=== PATIENT | male | born 1975 | race Caucasian/White ===

== ENCOUNTER 2017-11-27 13:01 | Inpatient (IN) | payer OTHER ==
[2017-11-27] MEDS ORDERED: LABETALOL HCL 100 MG TAB PO SCH (21:00)
[2017-11-27] MEDS ORDERED: D50W 25 GM/50 ML VIAL IVP PRN (21:01)
[2017-11-27] MEDS: PARoxetine HCL 20 MG TAB PO SCH (21:41)
[2017-11-27] MEDS: ATORVASTATIN CALCIUM 40 MG TAB PO SCH (21:41)
[2017-11-28] MEDS: INSULIN LISPRO 100 UNIT/ML SC SCH ×3 (08:04→17:08)
[2017-11-28] MEDS: NICOTINE 14 MG/24 HR PATCH TD SCH (08:05)
[2017-11-28 08:27] LABS: PLATELET COUNT 438 10^3/uL (150-400)
[2017-11-28] MEDS: PIOGLITAZONE HCL 15 MG TAB PO SCH (08:35)
[2017-11-28] MEDS: ASPIRIN EC 81 MG TAB PO SCH (08:35)
[2017-11-28] MEDS: CLOPIDOGREL BISULFATE 75 MG TAB PO SCH (08:35)
[2017-11-28] MEDS: INSULIN GLARGINE 100 UNITS/ML UNIT SC SCH ×2 (08:36→20:38)
[2017-11-28] MEDS: LABETALOL HCL 200 MG TAB PO SCH ×2 (09:35→20:32)
--- NOTE | 2017-11-28 11:04 | GHP ---
POST ADMISSION PHYSICIAN EVALUATION AND REHABILITATION TREATMENT PLAN DATE OF ADMISSION: 11/27/2017 DATE OF EVALUATION: 11/28/2017 TIME OF EVALUATION: 904 REFERRING FACILITY: [facility] REFERRING PHYSICIAN: Dr. Balderas IMPAIRMENT GROUP: 1.1. DATE OF ONSET: 11/23/2017 REHABLITATION DIAGNOSIS: Cerebrovascular accident ETIOLOGIC DIAGNOSIS: Left body involvement (right brain). HISTORY OF PRESENT ILLNESS: This patient is a 42-year-old man with history of diabetes mellitus and hypertension. He came to [facility] on 11/23, with left-sided weakness. He also had a hypertensive emergency with systolic blood pressure in the 260s. Blood pressure was controlled initially with IV labetalol. EKG showed sinus tachycardia. MRI of the brain showed small punctate acute lacunar infarcts in the right ventral thalamus, right posterior limb of the internal capsule, right parietal lobe white matter and right occipital lobe white matter. Head and neck CT angiogram showed a left vertebral artery dissection. Transthoracic echo was negative for intracardiac shunting. He had permissive hypertension for 24 hours, and he resumed his home dose of labetalol which was titrated with a goal blood pressure of less than 130/80. He was started on aspirin and clopidogrel for 1 month, and he will likely be transitioned to aspirin monotherapy after 1 month. LABORATORY DATA: Laboratory studies from his hospital stay: He had evaluation for hypercoagulable state, which was negative regarding anti-cardiolipin antibodies and a normal antithrombin III level. Basic metabolic profile on the day of admission showed an elevated glucose at 379, otherwise renal function and electrolytes were within normal limits. CBC showed a high hemoglobin and hematocrit at 19 and 56, and otherwise was within normal limits. Hemoglobin A1c was 14.1. Plasma homocystine was not elevated. Lipid panel showed a total cholesterol of 231, with an HDL of 38, and LDL of 148. Protein C was normal. Protein S was normal. PT and PTT were normal. Echocardiogram showed normal ventricular wall motion and size, and a normal ejection fraction of 54%. PRECAUTIONS: He is a fall risk, and he has aspiration precautions. ACTIVE COMORBIDITIES: He has the tier 3 comorbidities of hemiparesis, morbid obesity and diabetes with manifestations. PAST MEDICAL HISTORY: 1. Diabetes mellitus, type 2. 2. Hypertension. 3. Cholecystitis. 4. Tobacco dependence syndrome. 5. Bicuspid aortic valve. 6. Prolonged QT. 7. Prior CVA. 8. Diabetic retinopathy. 9. Dyslipidemia. 10. Major depression. 11. Obesity. 12. Diabetic nephropathy with elevated microalbumin. PAST SURGICAL HISTORY: He has had a laparoscopic cholecystectomy. PRE-HOSPITAL MEDICATIONS: 1. Amlodipine 10 mg p.o. daily. 2. Aspirin 81 mg p.o. daily. 3. Atorvastatin 40 mg p.o. at bedtime. 4. Humalog insulin. 5. Hydralazine 25 mg p.o. twice daily. 6. Labetalol 400 mg p.o. twice daily. 7. Metformin XR 1000 mg once a day. 8. Paroxetine 20 mg p.o. at bedtime. 9. Pioglitazone 30 mg p.o. daily. 10. Telmisartan/hydrochlorothiazide 80/25, 1 p.o. daily. 11. Tresiba FlexTouch 200 units/mL, up to 100 units daily. ADMISSION MEDICATIONS: 1. Aspirin 81 mg p.o. daily. 2. Atorvastatin 80 mg p.o. at bedtime. 3. Clopidogrel 75 mg p.o. daily. 4. Insulin, glargine, 36 units subcutaneous twice daily. 5. Insulin, lispro, on a sliding scale. 6. Labetalol 600 mg p.o. twice daily. 7. Metformin XR 1000 mg daily at 1800. 8. Nicotine patch. 9. Paroxetine 20 mg p.o. at bedtime. 10. Pioglitazone 30 mg p.o. daily. ALLERGIES: He has an intolerance listed to dulaglutide with nausea and vomiting. PSYCHOSOCIAL HISTORY: He was a smoker. He uses occasional alcohol. He lives alone. There are no steps to enter the home. He has no local family and no life partner. 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 FAMILY HISTORY: Noncontributory. REVIEW OF SYSTEMS: He is aware of difficulty forming words and of weakness and clumsiness on the left side. He denies vision changes. He denies loss of sensation. He denies numbness or tingling of the extremities. He expresses some frustration and distress around his debility from the stroke. He denies weight change, fevers, chills, cough, dyspnea, nausea, vomiting, constipation, diarrhea, dysuria or urinary frequency. He thinks he sleeps well. He is not aware of whether he snores. Otherwise, a 10-point review of systems is negative. PHYSICAL EXAM: VITAL SIGNS: Blood pressure is 144/86. At bedtime yesterday blood pressure was 178/114. Heart rate is 91. Respiratory rate is 17. Oxygen saturation is 90% on room air. Temperature is 36.6 degrees centigrade. His weight is 113.9 kg, for a body mass index of 37.1. GENERAL: This is an obese man, sitting in a chair, dressed in a green hospital smock, cooperative, and in no acute distress. HEENT: Extraocular movements are intact. Pupils are equal , round, and reactive to light. Mucous membranes are moist. Dentition is in good condition. He has a crowded airway, Mallampati class IV. NECK: Supple. HEART: There is a regular rate and rhythm with no murmurs, rubs, or gallops. LUNGS: Clear to auscultation bilaterally. ABDOMEN: Soft, nontender, nondistended with normoactive bowel sounds and no hepatosplenomegaly. EXTREMITIES: There is no cyanosis, clubbing or edema. Radial pulses are 2+ bilaterally. Pedal pulses are not palpable. NEUROLOGIC: He is alert and oriented x3. Cranial nerves 2-12 are grossly intact, though he has dysarthric speech. He has mild weakness on extension of the left arm, but otherwise strength is 5/5 overall. He has ataxia with the left arm and left leg. Sensation is intact to light touch. Deep tendon reflexes are 2+ bilaterally at the biceps and hypoactive at the patellae and Achilles tendons. CURRENT LEVEL OF FUNCTION: Per the pre-admission screen. Regarding diet, feeding, and swallowing, he passed a swallow screen. He was on a regular diet with supervision and setup. Grooming required supervision. It was done seated. He had difficulty with left upper extremity coordination and tool design engineer. Dressing, upper and lower body, required minimal assistance. Toileting required supervision and setup. Toilet transfer required minimal assist. He was continent of bowel and bladder. Bed mobility required supervision with voice cues with the head of the bed raised and very close supervision due to unsteadiness. Transfers required minimal assist with voice cues. He used a front-wheeled walker. Balance required minimal assist. Endurance was fair. He was able to walk 8 feet with a front-wheeled walker and minimal assist. Regarding communication, he was noted to have dysarthria. On today's exam, there is no significant difference from the pre-admission screen. IMPRESSION: This is a 42-year-old man with uncontrolled diabetes mellitus, type 2, and a hemoglobin A1c of 14.1 in the hospital, hypertension, dyslipidemia , and tobacco dependence syndrome who presented to [facility] on 11/23/2017, with left-sided weakness. He was diagnosed with multiple embolic strokes on the right side of his brain including frontal, parietal, thalamic, internal capsule and occipital lobes. His last time of normal neurologic function was unknown, so he was not treated with thrombolytics. He had an echocardiogram which ruled out intracardiac shunt. Head and neck CT angiogram showed a left vertebral dissection. He had been on aspirin previously and clopidogrel was added to be continued for 1 month. Blood pressure control was achieved with IV labetalol, and then he was switched to p.o. labetalol. Atorvastatin dose was increased. He was otherwise medically stable and appropriate for inpatient rehabilitation. His goal is to complete a rehabilitation stay and then return to independent living with home care versus outpatient services. For a safe discharge, he will need to achieve independence with eating, grooming and bed mobility, and modified independence for dressing, transfers, and ambulation on level and unlevel surfaces for community distances. His dysarthria will improve. He will likely require assistance for household management, shopping, and meal preparation. He will have therapy with PT, OT, and CLAIMS CUSTOMER SERVICE REPRESENTATIVE for 60 minutes per day for each discipline on 5-7 days of the week. His expected duration of stay is 10-14 days. It is anticipated that upon discharge he will continue to benefit from outpatient therapy including OT, CLAIMS CUSTOMER SERVICE REPRESENTATIVE, PT and a stroke support group. PLAN: 1. Left-sided weakness and ataxia due to multifocal right CVA. PT and OT to optimize mobility and ADLs toward the independent to modified-independent level. 2. Dysarthria to be assessed and treated per Speech and Language Pathology. 3. Diabetes mellitus, type 2. I have changed his insulin dosing to insulin glargine 30 units subcutaneous in the morning and 42 units subcutaneous at bedtime. My intention is to progressively decrease the morning dose and increase the evening dose, though he is on large enough doses that he will probably continue to benefit from twice-daily dosing by increasing the evening dose. Insulin can be more easily adjusted based on his fasting the next morning. Continue metformin, though he might benefit from titration. Continue pioglitazone, though I have reduced the dose from 30 mg to 15 mg daily due to interaction with clopidogrel. 4. Hypertension, currently managed on labetalol alone. As he is a diabetic he would benefit from resumption of an angiotensin receptor armando for renal protection. His blood pressure will be monitored and medications will be adjusted. 5. Dyslipidemia. Continue atorvastatin. Dose was increased in the hospital from 40 mg to 80 mg at bedtime. 6. Secondary prevention of CVA. Continue glycemic control, blood pressure control, atorvastatin for dyslipidemia, and aspirin and clopidogrel. After 1 month, the plan is to discontinue the clopidogrel. He will be referred to Cardiology upon discharge for placement of an implanted cardiac rhythm monitor to rule out occult atrial fibrillation. If he shows any signs or symptoms of dysrhythmias, we will get an EKG on the rehabilitation unit. 7. Tobacco dependence syndrome. He reports he has quit smoking now that he has had a stroke. He is receiving nicotine patch and this will be continued. 8. History of depression. Continue paroxetine. This will probably also suffice to enhance neuro-recovery, though fluoxetine is the SSRI about which there is data. 9. Obesity. He will have a registered safety engineer consult. He has been placed on a 2200 kilocalorie per day controlled-carbohydrate diet. 10. Vertebral dissection. Secondary prevention for cerebrovascular accident will also help prevent recurrence of vertebral dissection. FOLLOWUP: 1. He is to see neurologist, Dr. Reilly Robles, in approximately 3 weeks which will likely be after his discharge. 2. He will follow up with Cardiology for a 30-day cardiac loop recorder. 3. His primary care provider is Mikayla Zhu MD, whom he can see in approximately 2 weeks. /[id number]/MODL MTDD
[2017-11-28] MEDS ORDERED: LOPERAMIDE HCL 2 MG CAP PO PRN (14:41)
[2017-11-28] MEDS: metFORMIN SR 500 MG TAB PO SCH (17:08)
[2017-11-28] MEDS: PARoxetine HCL 20 MG TAB PO SCH (20:31)
[2017-11-28] MEDS: ATORVASTATIN CALCIUM 40 MG TAB PO SCH (20:31)
[2017-11-29] MEDS: LABETALOL HCL 200 MG TAB PO SCH ×2 (07:47→20:47)
[2017-11-29] MEDS: NICOTINE 14 MG/24 HR PATCH TD SCH (07:51)
[2017-11-29] MEDS: INSULIN GLARGINE 100 UNITS/ML UNIT SC SCH ×2 (07:53→20:49)
[2017-11-29] MEDS: INSULIN LISPRO 100 UNIT/ML SC SCH ×3 (07:55→17:26)
[2017-11-29] MEDS: CLOPIDOGREL BISULFATE 75 MG TAB PO SCH (08:21)
[2017-11-29] MEDS: PIOGLITAZONE HCL 15 MG TAB PO SCH (08:21)
[2017-11-29] MEDS: ASPIRIN EC 81 MG TAB PO SCH (08:21)
--- NOTE | 2017-11-29 11:31 | SOAPPROG ---
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 PT and OT to optimize mobility and ADLs toward the independent to modified-independent level. Dysarthria to be assessed and treated per Speech and Language Pathology. Diabetes mellitus, type 2. I have changed his insulin dosing to insulin glargine 30 units subcutaneous in the morning and 42 units subcutaneous at bedtime starting 11/27/2017. Insulin can be more easily adjusted based on his fasting the next morning. Continue metformin; he reports intolerance to higher dose in the past.. Continue pioglitazone, with dose reduced from 30 mg to 15 mg daily due to interaction with clopidogrel. Hypertension, and orthostatic hypotension * Reduce labetalol dose from 600 mg twice daily to 300 mg twice daily, 11/29/2017 , and initiate candesartan 8 mg at HS to control nocturnal hypertension. ARB is indicated in diabetic, and duration of candesartan is the shortest of the available ARB ease so should contribute the least 2 daytime orthostasis. * Continue to monitor blood pressure and orthostatic changes. Dyslipidemia. Continue atorvastatin. Dose was increased in the hospital from 40 mg to 80 mg at bedtime. Secondary prevention of CVA. Continue glycemic control, blood pressure control , atorvastatin for dyslipidemia, and aspirin and clopidogrel. After 1 month, the plan is to discontinue the clopidogrel. He will be referred to Cardiology upon discharge for placement of an implanted cardiac rhythm monitor to rule out occult atrial fibrillation. If he shows any signs or symptoms of dysrhythmias, we will get an EKG on the rehabilitation unit. Tobacco dependence syndrome. He reports he has quit smoking now that he has had a stroke. He is receiving nicotine patch and this will be continued. History of depression. Continue paroxetine. This will probably also suffice to enhance neuro-recovery, though fluoxetine is the SSRI about which there is data. Obesity. He will have a telephone sex worker consult. He has been placed on a 2200 kilocalorie per day controlled-carbohydrate diet. Vertebral dissection. Secondary prevention for cerebrovascular accident will also help prevent recurrence of vertebral dissection. FOLLOWUP: 1. He is to see neurologist, Dr. Reilly Robles, in approximately 3 weeks which will likely be after his discharge. 2. He will follow up with Cardiology for a 30-day cardiac loop recorder. 3. His primary care provider is Mikayla Zhu MD, whom he can see in approximately 2 weeks. 11/29/17 13:14 Subjective: No complaints. Slept well. Not in pain. Has had dizziness with standing. Found to be orthostatic. Objective: Vital Signs Temp Pulse Resp BP Pulse Ox 36.8 C 86 19 75/48 L 93 11/29/17 07:43 11/29/17 08:55 11/29/17 07:43 11/29/17 08:55 11/29/17 07:43 Laboratory Results 11/28/17 06:03 11/28/17 06:03 11/28/17 11/29/17 11/30/17 05:59 05:59 05:59 Intake Total 0 2535 257 Output Total 500 600 Balance 0 2035 -343 Physical Exam - Physical Exam General Appearance: WD/WN, alert, no apparent distress Respiratory: normal breath sounds, No crackles, No rhonchi, No wheezing Cardiac/Chest: regular rate, rhythm, edema (1+ bilateral pretibial), No diastolic murmur, No systolic murmur Skin: normal color, warm/dry Neuro/Psych: alert, normal mood/affect, oriented x 3 ICD10 Worksheet Patient Problems: Problems Problem Status Onset CVA (cerebral vascular accident) Acute HTN (hypertension) Acute Vertebral artery dissection Acute
[2017-11-29] MEDS: metFORMIN SR 500 MG TAB PO SCH (17:26)
[2017-11-29] MEDS: ATORVASTATIN CALCIUM 40 MG TAB PO SCH (20:46)
[2017-11-29] MEDS: PARoxetine HCL 20 MG TAB PO SCH (20:47)
[2017-11-29] MEDS: CANDESARTAN CILEXETIL 8 MG TAB PO SCH (20:49)
[2017-11-30] MEDS: INSULIN LISPRO 100 UNIT/ML SC SCH ×3 (09:43→17:14)
[2017-11-30] MEDS: NICOTINE 14 MG/24 HR PATCH TD SCH (09:58)
[2017-11-30] MEDS: LABETALOL HCL 200 MG TAB PO SCH ×2 (09:59→21:18)
[2017-11-30] MEDS: CLOPIDOGREL BISULFATE 75 MG TAB PO SCH (09:59)
[2017-11-30] MEDS: INSULIN GLARGINE 100 UNITS/ML UNIT SC SCH ×2 (09:59→21:17)
[2017-11-30] MEDS: ASPIRIN EC 81 MG TAB PO SCH (09:59)
[2017-11-30] MEDS: PIOGLITAZONE HCL 15 MG TAB PO SCH (10:00)
--- NOTE | 2017-11-30 10:00 | SOAPPROG ---
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 * SBA bed mobility. Walked 50' FWW cues to avoid L foot drag. Needed assist for ADLs due to orthostatic hypotension. * Continue PT and OT to optimize mobility and ADLs toward the independent to modified-independent level. Dysarthria, per Speech and Language Pathology. Diabetes mellitus, type 2. Glargine insulin dosing changed from 36 units BID to 30 units subcutaneous in the morning and 42 units subcutaneous at bedtime starting 11/27/2017. Insulin can be more easily adjusted based on his fasting the next morning. Continue metformin; he reports intolerance to higher dose in the past.. Continue pioglitazone, with dose reduced from 30 mg to 15 mg daily due to interaction with clopidogrel. * Fasting range is 139-177 over past 3 days. Will increase HS glargine from 40 to units to 45 units starting 11/30/2017. Hypertension, and orthostatic hypotension * Reduce labetalol dose from 600 mg twice daily to 300 mg twice daily, 11/29/2017 , and initiated candesartan 8 mg at HS 11/29/2017 to control nocturnal hypertension. ARB is indicated in diabetic, and duration of candesartan is the shortest of the available ARB ease so should contribute the least 2 daytime orthostasis. * Symptomatically improved, 11/30/2017. * Continue to monitor blood pressure and orthostatic changes. Dyslipidemia. Continue atorvastatin. Dose was increased in the hospital from 40 mg to 80 mg at bedtime. Secondary prevention of CVA. Continue glycemic control, blood pressure control , atorvastatin for dyslipidemia, and aspirin and clopidogrel. After 1 month, ( 12/22/2017) the plan is to discontinue the clopidogrel. He will be referred to Cardiology upon discharge for placement of an implanted cardiac rhythm monitor to rule out occult atrial fibrillation. If he shows any signs or symptoms of dysrhythmias, we will get an EKG on the rehabilitation unit. Tobacco dependence syndrome. He reports he has quit smoking now that he has had a stroke. He is receiving nicotine patch and this will be continued. History of depression. Continue paroxetine. This will probably also suffice to enhance neuro-recovery, though fluoxetine is the SSRI about which there is data. Obesity. He will have a signing teacher consult. He has been placed on a 2200 kilocalorie per day controlled-carbohydrate diet. Vertebral dissection. Secondary prevention for cerebrovascular accident will also help prevent recurrence of vertebral dissection. FOLLOWUP: 1. He is to see neurologist, Dr. Reilly Robles, in approximately 3 weeks (12/18/2017) which will likely be after his discharge. 2. He will follow up with Cardiology for a 30-day cardiac loop recorder. 3. His primary care provider is Mikayla Zhu MD, whom he can see in approximately 2 weeks (12/11/2017). 11/30/17 11:35 Subjective: No complaints. No orthostatic symptoms this morning. Slept well. No cough or dyspnea, no fevers or chills, not in pain. Objective: Vital Signs Temp Pulse Resp BP Pulse Ox 37.0 C 71 16 145/93 H 93 11/29/17 20:00 11/29/17 20:47 11/29/17 20:00 11/30/17 00:08 11/29/17 20:00 Laboratory Results 11/28/17 06:03 11/28/17 06:03 11/29/17 11/30/17 12/01/17 05:59 05:59 05:59 Intake Total 2535 1447 120 Output Total 500 1300 950 Balance 2035 147 -830 Physical Exam - Physical Exam General Appearance: WD/WN, alert, no apparent distress Respiratory: normal breath sounds, No crackles, No rhonchi, No wheezing Cardiac/Chest: regular rate, rhythm, No diastolic murmur, No systolic murmur Skin: normal color, warm/dry Neuro/Psych: alert, normal mood/affect, oriented x 3, other (Observed working with physical therapy practicing raising feet on 2 step. Has ataxia with the left leg.) ICD10 Worksheet Patient Problems: Problems Problem Status Onset CVA (cerebral vascular accident) Acute HTN (hypertension) Acute Vertebral artery dissection Acute
[2017-11-30] MEDS ORDERED: PNEUMOCOCCAL 0.5ML VACCINE VIAL IM ONE (12:09)
[2017-11-30] MEDS: metFORMIN SR 500 MG TAB PO SCH (17:15)
[2017-11-30] MEDS: CANDESARTAN CILEXETIL 8 MG TAB PO SCH (21:18)
[2017-11-30] MEDS: PARoxetine HCL 20 MG TAB PO SCH (21:18)
[2017-11-30] MEDS: ATORVASTATIN CALCIUM 40 MG TAB PO SCH (21:18)
[2017-12-01] MEDS: INSULIN GLARGINE 100 UNITS/ML UNIT SC SCH ×2 (08:14→21:13)
[2017-12-01] MEDS: LABETALOL HCL 200 MG TAB PO SCH ×2 (08:15→21:16)
[2017-12-01] MEDS: CLOPIDOGREL BISULFATE 75 MG TAB PO SCH (08:19)
[2017-12-01] MEDS: PIOGLITAZONE HCL 15 MG TAB PO SCH (08:19)
[2017-12-01] MEDS: ASPIRIN EC 81 MG TAB PO SCH (08:19)
[2017-12-01] MEDS: INSULIN LISPRO 100 UNIT/ML SC SCH ×3 (08:19→17:20)
[2017-12-01] MEDS: NICOTINE 14 MG/24 HR PATCH TD SCH (08:20)
--- NOTE | 2017-12-01 15:16 | SOAPPROG ---
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 * SBA bed mobility. Walked 50' FWW cues to avoid L foot drag. Needed assist for ADLs due to orthostatic hypotension. * Continue PT and OT to optimize mobility and ADLs toward the independent to modified-independent level. Dysarthria, per Speech and Language Pathology. Diabetes mellitus, type 2. Glargine insulin dosing changed from 36 units BID to 30 units subcutaneous in the morning and 42 units subcutaneous at bedtime starting 11/27/2017. Insulin can be more easily adjusted based on his fasting the next morning. Continue metformin; he reports intolerance to higher dose in the past.. Continue pioglitazone, with dose reduced from 30 mg to 15 mg daily due to interaction with clopidogrel. * Glucose with significant improvement over last 24hrs. Cont lantus 30/45 as started on 11/30/2017. Hypertension, and orthostatic hypotension * Reduce labetalol dose from 600 mg twice daily to 300 mg twice daily, 11/29/2017 , and initiated candesartan 8 mg at HS 11/29/2017 to control nocturnal hypertension. ARB is indicated in diabetic, and duration of candesartan is the shortest of the available ARB ease so should contribute the least 2 daytime orthostasis. * Symptomatically improved, 11/30/2017. * Continue to monitor blood pressure and orthostatic changes. Dyslipidemia. Continue atorvastatin. Dose was increased in the hospital from 40 mg to 80 mg at bedtime. Secondary prevention of CVA. Continue glycemic control, blood pressure control , atorvastatin for dyslipidemia, and aspirin and clopidogrel. After 1 month, ( 12/22/2017) the plan is to discontinue the clopidogrel. He will be referred to Cardiology upon discharge for placement of an implanted cardiac rhythm monitor to rule out occult atrial fibrillation. If he shows any signs or symptoms of dysrhythmias, we will get an EKG on the rehabilitation unit. Tobacco dependence syndrome. He reports he has quit smoking now that he has had a stroke. He is receiving nicotine patch and this will be continued. History of depression. Continue paroxetine. This will probably also suffice to enhance neuro-recovery, though fluoxetine is the SSRI about which there is data. Obesity. He will have a pinmaker consult. He has been placed on a 2200 kilocalorie per day controlled-carbohydrate diet. Vertebral dissection. Secondary prevention for cerebrovascular accident will also help prevent recurrence of vertebral dissection. FOLLOWUP: 1. He is to see neurologist, Dr. Reilly Robles, in approximately 3 weeks (12/18/2017) which will likely be after his discharge. 2. He will follow up with Cardiology for a 30-day cardiac loop recorder. 3. His primary care provider is Mikayla Zhu MD, whom he can see in approximately 2 weeks (12/11/2017). 12/01/17 15:14 Subjective: Doing pretty well today. Slept well. Has control over bowel/bladder. no new pain Objective: Vital Signs Temp Pulse Resp BP Pulse Ox 98.1 F 75 18 128/86 H 96 12/01/17 07:37 12/01/17 08:00 12/01/17 07:37 12/01/17 08:00 12/01/17 07:37 Laboratory Results 11/28/17 06:03 11/28/17 06:03 11/30/17 12/01/17 12/02/17 05:59 05:59 05:59 Intake Total 1447 980 480 Output Total 1300 2100 500 Balance 147 -1120 -20 Physical Exam - Physical Exam General Appearance: no apparent distress Respiratory: lungs clear Cardiac/Chest: regular rate, rhythm Skin: warm/dry Neuro/Psych: alert, normal mood/affect ICD10 Worksheet Patient Problems: Problems Problem Status Onset CVA (cerebral vascular accident) Acute HTN (hypertension) Acute Vertebral artery dissection Acute
[2017-12-01] MEDS: metFORMIN SR 500 MG TAB PO SCH (17:31)
[2017-12-01] MEDS: PARoxetine HCL 20 MG TAB PO SCH (21:15)
[2017-12-01] MEDS: CANDESARTAN CILEXETIL 8 MG TAB PO SCH (21:15)
[2017-12-01] MEDS: ATORVASTATIN CALCIUM 40 MG TAB PO SCH (21:15)
[2017-12-02] MEDS: INSULIN LISPRO 100 UNIT/ML SC SCH ×3 (07:40→17:24)
[2017-12-02] MEDS: NICOTINE 14 MG/24 HR PATCH TD SCH (07:56)
[2017-12-02] MEDS: LABETALOL HCL 200 MG TAB PO SCH ×2 (07:58→20:14)
[2017-12-02] MEDS: CLOPIDOGREL BISULFATE 75 MG TAB PO SCH (08:00)
[2017-12-02] MEDS: ASPIRIN EC 81 MG TAB PO SCH (08:00)
[2017-12-02] MEDS: INSULIN GLARGINE 100 UNITS/ML UNIT SC SCH ×2 (08:01→21:21)
[2017-12-02] MEDS: PIOGLITAZONE HCL 15 MG TAB PO SCH (08:01)
--- NOTE | 2017-12-02 12:41 | SOAPPROG ---
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 * SBA bed mobility. Walked 50' FWW cues to avoid L foot drag. Needed assist for ADLs due to orthostatic hypotension. * Continue PT and OT to optimize mobility and ADLs toward the independent to modified-independent level. Dysarthria, per Speech and Language Pathology. Diabetes mellitus, type 2. Glargine insulin dosing changed from 36 units BID to 30 units subcutaneous in the morning and 42 units subcutaneous at bedtime starting 11/27/2017. Insulin can be more easily adjusted based on his fasting the next morning. Continue metformin; he reports intolerance to higher dose in the past.. Continue pioglitazone, with dose reduced from 30 mg to 15 mg daily due to interaction with clopidogrel. * Glucose with significant improvement over last 24hrs. Cont lantus 30/45 as started on 11/30/2017. Hypertension, and orthostatic hypotension * Reduce labetalol dose from 600 mg twice daily to 300 mg twice daily, 11/29/2017 , and initiated candesartan 8 mg at HS 11/29/2017 to control nocturnal hypertension. ARB is indicated in diabetic, and duration of candesartan is the shortest of the available ARB ease so should contribute the least 2 daytime orthostasis. * Symptomatically improved, 11/30/2017. * Continue to monitor blood pressure and orthostatic changes. Dyslipidemia. Continue atorvastatin. Dose was increased in the hospital from 40 mg to 80 mg at bedtime. Secondary prevention of CVA. Continue glycemic control, blood pressure control , atorvastatin for dyslipidemia, and aspirin and clopidogrel. After 1 month, ( 12/22/2017) the plan is to discontinue the clopidogrel. He will be referred to Cardiology upon discharge for placement of an implanted cardiac rhythm monitor to rule out occult atrial fibrillation. If he shows any signs or symptoms of dysrhythmias, we will get an EKG on the rehabilitation unit. Tobacco dependence syndrome. He reports he has quit smoking now that he has had a stroke. He is receiving nicotine patch and this will be continued. History of depression. Continue paroxetine. This will probably also suffice to enhance neuro-recovery, though fluoxetine is the SSRI about which there is data. Obesity. He will have a automobile leasing supervisor consult. He has been placed on a 2200 kilocalorie per day controlled-carbohydrate diet. Vertebral dissection. Secondary prevention for cerebrovascular accident will also help prevent recurrence of vertebral dissection. FOLLOWUP: 1. He is to see neurologist, Dr. Reilly Robles, in approximately 3 weeks (12/18/2017) which will likely be after his discharge. 2. He will follow up with Cardiology for a 30-day cardiac loop recorder. 3. His primary care provider is Mikayla Zhu MD, whom he can see in approximately 2 weeks (12/11/2017). Today's Plan: Pt with some evidence of orthostasis while standing today. Still with somewhat labile blood pressure - up to 140's or 150 when in bed. We discussed utilizing strategies to decreased the orthostasis (worse when goes quickly in sitting/standing) to see if this will allow appropriate acclimation. no new neurologic deficits or other concerns. Glucose relatively well controlled- Slightly low at 69 this am but quickly corrected and patient without symptoms. 12/02/17 12:38 Subjective: Feeling good today - Did notice being somewhat light headed with standing but otherwise no symptoms. No new SOB/CP or other neurologic changes. Feels like his glucose is getting better controlled than ever before. Objective: Vital Signs Temp Pulse Resp BP Pulse Ox 98.3 F 84 19 101/73 95 12/02/17 07:20 12/02/17 07:58 12/02/17 07:20 12/02/17 07:58 12/02/17 07:20 Laboratory Results 11/28/17 06:03 11/28/17 06:03 12/01/17 12/02/17 12/03/17 05:59 05:59 05:59 Intake Total 980 1020 640 Output Total 2100 900 350 Balance -1120 120 290 Physical Exam - Physical Exam General Appearance: no apparent distress, other (sitting up in his chair at the side of the bed) Respiratory: lungs clear, normal breath sounds Cardiac/Chest: regular rate, rhythm Abdomen: non-tender, soft Skin: normal color Extremities: non-tender Neuro/Psych: alert, normal mood/affect ICD10 Worksheet Patient Problems: Problems Problem Status Onset CVA (cerebral vascular accident) Acute HTN (hypertension) Acute Vertebral artery dissection Acute
[2017-12-02] MEDS: ENOXAPARIN 30 MG/0.3 ML SYR SC SCH (14:33)
[2017-12-02] MEDS: metFORMIN SR 500 MG TAB PO SCH (17:26)
[2017-12-02] MEDS: PARoxetine HCL 20 MG TAB PO SCH (20:13)
[2017-12-02] MEDS: ATORVASTATIN CALCIUM 40 MG TAB PO SCH (20:14)
[2017-12-02] MEDS: CANDESARTAN CILEXETIL 8 MG TAB PO SCH (20:14)
[2017-12-03] MEDS: ASPIRIN EC 81 MG TAB PO SCH (08:41)
[2017-12-03] MEDS: PIOGLITAZONE HCL 15 MG TAB PO SCH (08:41)
[2017-12-03] MEDS: NICOTINE 14 MG/24 HR PATCH TD SCH (08:41)
[2017-12-03] MEDS: CLOPIDOGREL BISULFATE 75 MG TAB PO SCH (08:41)
[2017-12-03] MEDS: INSULIN LISPRO 100 UNIT/ML SC SCH ×3 (08:47→17:16)
[2017-12-03] MEDS: INSULIN GLARGINE 100 UNITS/ML UNIT SC SCH ×2 (08:48→20:23)
[2017-12-03] MEDS: ENOXAPARIN 30 MG/0.3 ML SYR SC SCH (08:52)
[2017-12-03] MEDS: LABETALOL HCL 200 MG TAB PO SCH ×2 (10:00→20:19)
[2017-12-03] MEDS ORDERED: LABETALOL HCL 100 MG TAB PO ONE (10:00)
--- NOTE | 2017-12-03 13:32 | SOAPPROG ---
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 * Initial functional independence measure is 84 on 12/03/2017. Standby assist/ supervision for bed mobility. Transfers with standby assist and front wheeled walker. Ambulated 100 ft standby assist with front wheeled walker. Has left lower extremity weakness and inconsistent foot placement. Grooming and hygiene are done seated. Upper body dressing requires setup and standby assist. Lower body dressing requires contact guard assist for balance. Bathing is done with contact guard assist. He has reduced visual acuity, 20/50 on the right, and 20/ 40 on the left. * Continue PT and OT to optimize mobility and ADLs toward the independent to modified-independent level. Dysarthria, mild to moderate. Continue Speech and Language Pathology. Diabetes mellitus, type 2. Glargine insulin dosing changed from 36 units BID to 30 units subcutaneous in the morning and 42 units subcutaneous at bedtime starting 11/27/2017. Insulin can be more easily adjusted based on his fasting the next morning. Continue metformin; he reports intolerance to higher dose in the past.. Continue pioglitazone, with dose reduced from 30 mg to 15 mg daily due to interaction with clopidogrel. * Fasting range is 139-177 over past 3 days as of 11/30/2017. Will increase HS glargine from 40 to units to 45 units starting 11/30/2017. * Fasting running low last several days as of 12/03/2017. Reduce a.m. Glargine from 30 to 28 units; reduce p.m. Glargine from 45 to 42 units. Hypertension, and orthostatic hypotension * Reduced labetalol dose from 600 mg twice daily to 300 mg twice daily, 2017, and initiated candesartan 8 mg at HS 11/29/2017 to control nocturnal hypertension. ARB is indicated in diabetic, and duration of candesartan is the shortest of the available ARB ease so should contribute the least 2 daytime orthostasis. * Symptomatically improved, 11/30/2017. * Continues very orthostatic with symptoms on 12/03/2017. Reduce labetalol further from 300 mg to 200 mg twice daily starting afternoon of 12/03/2017 * Continue compression stockings. Dyslipidemia. Continue atorvastatin. Dose was increased in the hospital from 40 mg to 80 mg at bedtime. Secondary prevention of CVA. Continue glycemic control, blood pressure control , atorvastatin for dyslipidemia, and aspirin and clopidogrel. After 1 month, ( 12/22/2017) the plan is to discontinue the clopidogrel. He will be referred to Cardiology upon discharge for placement of an implanted cardiac rhythm monitor to rule out occult atrial fibrillation. If he shows any signs or symptoms of dysrhythmias, we will get an EKG on the rehabilitation unit. Tobacco dependence syndrome. He reports he has quit smoking now that he has had a stroke. He is receiving nicotine patch and this will be continued. History of depression. Continue paroxetine. This will probably also suffice to enhance neuro-recovery, though fluoxetine is the SSRI about which there is data. Obesity. He will have a press tool maker consult. He has been placed on a 2200 kilocalorie per day controlled-carbohydrate diet. Vertebral dissection. Secondary prevention for cerebrovascular accident will also help prevent recurrence of vertebral dissection. DISPOSITION: Lives alone and with no local family, but has pole a local friends who can provide some help. Lid lives in apartment with no steps to enter. Tentative discharge date set for 12/11/2017. FOLLOWUP: 1. He is to see neurologist, Dr. Reilly Robles, in approximately 3 weeks (12/18/2017) which will likely be after his discharge. 2. He will follow up with Cardiology for a 30-day cardiac loop recorder. 3. His primary care provider is Mikayla Zhu MD, whom he can see in approximately 2 weeks (12/11/2017). 12/03/17 13:23 Subjective: Feels dizziness whenever he stands. No temporal pattern. Says it lasts about 30 sec. Otherwise doing well. Sleeping well, no cough or dyspnea, not in pain. Objective: Vital Signs Temp Pulse Resp BP Pulse Ox 36.7 C 76 14 124/76 H 94 12/03/17 11:38 12/03/17 11:38 12/03/17 11:38 12/03/17 11:38 12/03/17 11:38 Laboratory Results 11/28/17 06:03 11/28/17 06:03 12/02/17 12/03/17 12/04/17 05:59 05:59 05:59 Intake Total 1020 2040 740 Output Total 900 1050 Balance 120 990 740 - Time Spent With Patient Time Spent With Patient: Greater than 35 min floor time today, including more than 50% of time in coordination of care during staffing meeting, and counseling patient. Physical Exam - Physical Exam General Appearance: WD/WN, alert, no apparent distress, obese Respiratory: normal breath sounds, No crackles, No rhonchi, No wheezing Cardiac/Chest: regular rate, rhythm, No edema, No JVD, No diastolic murmur, No systolic murmur Skin: normal color, warm/dry Neuro/Psych: alert, normal mood/affect, oriented x 3, motor weakness (Left lower extremity) ICD10 Worksheet Patient Problems: Problems Problem Status Onset CVA (cerebral vascular accident) Acute HTN (hypertension) Acute Vertebral artery dissection Acute
[2017-12-03] MEDS: metFORMIN SR 500 MG TAB PO SCH (17:12)
[2017-12-03] MEDS: ATORVASTATIN CALCIUM 40 MG TAB PO SCH (20:19)
[2017-12-03] MEDS: PARoxetine HCL 20 MG TAB PO SCH (20:19)
[2017-12-03] MEDS: CANDESARTAN CILEXETIL 8 MG TAB PO SCH (20:19)
[2017-12-04] MEDS: CLOPIDOGREL BISULFATE 75 MG TAB PO SCH (08:55)
[2017-12-04] MEDS: ENOXAPARIN 30 MG/0.3 ML SYR SC SCH (08:55)
[2017-12-04] MEDS: ASPIRIN EC 81 MG TAB PO SCH (08:55)
[2017-12-04] MEDS: NICOTINE 14 MG/24 HR PATCH TD SCH (08:56)
[2017-12-04] MEDS: metFORMIN SR 500 MG TAB PO SCH (08:56)
[2017-12-04] MEDS: INSULIN LISPRO 100 UNIT/ML SC SCH ×3 (08:56→17:17)
[2017-12-04] MEDS: INSULIN GLARGINE 100 UNITS/ML UNIT SC SCH ×2 (08:56→20:40)
[2017-12-04] MEDS: LABETALOL HCL 200 MG TAB PO SCH (08:57)
[2017-12-04] MEDS: PIOGLITAZONE HCL 15 MG TAB PO SCH (08:57)
--- NOTE | 2017-12-04 16:22 | SOAPPROG ---
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 * Initial functional independence measure is 84 on 12/03/2017. Standby assist/ supervision for bed mobility. Transfers with standby assist and front wheeled walker. Ambulated 100 ft standby assist with front wheeled walker. Has left lower extremity weakness and inconsistent foot placement. Grooming and hygiene are done seated. Upper body dressing requires setup and standby assist. Lower body dressing requires contact guard assist for balance. Bathing is done with contact guard assist. He has reduced visual acuity, 20/50 on the right, and 20/ 40 on the left. * Ambulated 140 ft on 12/04/2017. * Continue PT and OT to optimize mobility and ADLs toward the independent to modified-independent level. Dysarthria, mild to moderate. Continue Speech and Language Pathology. Diabetes mellitus, type 2. Glargine insulin dosing changed from 36 units BID to 30 units subcutaneous in the morning and 42 units subcutaneous at bedtime starting 11/27/2017. Insulin can be more easily adjusted based on his fasting the next morning. Continue metformin; he reports intolerance to higher dose in the past.. Continue pioglitazone, with dose reduced from 30 mg to 15 mg daily due to interaction with clopidogrel. * Fasting range is 139-177 over past 3 days as of 11/30/2017. Will increase HS glargine from 40 to units to 45 units starting 11/30/2017. * Fasting running low last several days as of 12/03/2017. Reduce a.m. Glargine from 30 to 28 units; reduce p.m. Glargine from 45 to 42 units. Hypertension, and orthostatic hypotension * Discontinue labetalol starting 12/05/2017, to allow heart rate response to orthostasis. Initiate amlodipine 5 mg q.day starting 12/05/2017. * Reduced labetalol dose from 600 mg twice daily to 300 mg twice daily, 2017, and initiated candesartan 8 mg at HS 11/29/2017 to control nocturnal hypertension. ARB is indicated in diabetic, and duration of candesartan is the shortest of the available ARB ease so should contribute the least 2 daytime orthostasis. * Symptomatically improved, 11/30/2017. * Continues very orthostatic with symptoms on 12/03/2017. Reduce labetalol further from 300 mg to 200 mg twice daily starting afternoon of 12/03/2017 * Continue compression stockings. Malaise and subjective fever, 12/04/2017. No specific symptoms of infection. Observe. Dyslipidemia. Continue atorvastatin. Dose was increased in the hospital from 40 mg to 80 mg at bedtime. Secondary prevention of CVA. Continue glycemic control, blood pressure control , atorvastatin for dyslipidemia, and aspirin and clopidogrel. After 1 month, ( 12/22/2017) the plan is to discontinue the clopidogrel. He will be referred to Cardiology upon discharge for placement of an implanted cardiac rhythm monitor to rule out occult atrial fibrillation. If he shows any signs or symptoms of dysrhythmias, we will get an EKG on the rehabilitation unit. Tobacco dependence syndrome. He reports he has quit smoking now that he has had a stroke. He is receiving nicotine patch and this will be continued. History of depression. Continue paroxetine. This will probably also suffice to enhance neuro-recovery, though fluoxetine is the SSRI about which there is data. Obesity. He will have a interventionist consult. He has been placed on a 2200 kilocalorie per day controlled-carbohydrate diet. Vertebral dissection. Secondary prevention for cerebrovascular accident will also help prevent recurrence of vertebral dissection. DISPOSITION: Lives alone and with no local family, but has pole a local friends who can provide some help. Lid lives in apartment with no steps to enter. Tentative discharge date set for 12/11/2017. FOLLOWUP: 1. He is to see neurologist, Dr. Reilly Robles, in approximately 3 weeks (12/18/2017) which will likely be after his discharge. 2. He will follow up with Cardiology for a 30-day cardiac loop recorder. 3. His primary care provider is Mikayla Zhu MD, whom he can see in approximately 2 weeks (12/11/2017). 12/04/17 16:22 Subjective: Feels fatigued. Wonders if he is getting sick. Says the nurse found a temperature of 99 degrees. Denies orthostatic dizziness. No head congestion, no cough, no dysuria or urinary frequency, no diarrhea. Objective: Vital Signs Temp Pulse Resp BP Pulse Ox 37.5 C 92 16 98/67 L 93 12/04/17 13:12/04/17 13:12/04/17 13:12/04/17 13:12/04/17 13:17 Laboratory Results 11/28/17 06:03 11/28/17 06:03 12/03/17 12/04/17 12/05/17 05:59 05:59 05:59 Intake Total 2040 1440 250 Output Total 1050 850 Balance 990 590 250 Physical Exam - Physical Exam General Appearance: WD/WN, alert, no apparent distress Respiratory: normal breath sounds, No crackles, No rhonchi, No wheezing Cardiac/Chest: regular rate, rhythm, No diastolic murmur, No systolic murmur Skin: normal color, warm/dry Neuro/Psych: alert, normal mood/affect, oriented x 3 ICD10 Worksheet Patient Problems: Problems Problem Status Onset CVA (cerebral vascular accident) Acute HTN (hypertension) Acute Vertebral artery dissection Acute
[2017-12-04] MEDS: PARoxetine HCL 20 MG TAB PO SCH (20:36)
[2017-12-04] MEDS: CANDESARTAN CILEXETIL 8 MG TAB PO SCH (20:36)
[2017-12-04] MEDS: ATORVASTATIN CALCIUM 40 MG TAB PO SCH (20:37)
[2017-12-05] MEDS: INSULIN GLARGINE 100 UNITS/ML UNIT SC SCH ×2 (07:33→20:48)
[2017-12-05] MEDS: ENOXAPARIN 30 MG/0.3 ML SYR SC SCH (07:34)
[2017-12-05] MEDS: metFORMIN SR 500 MG TAB PO SCH (07:35)
[2017-12-05] MEDS: PIOGLITAZONE HCL 15 MG TAB PO SCH (07:37)
[2017-12-05] MEDS: ASPIRIN EC 81 MG TAB PO SCH (07:37)
[2017-12-05] MEDS: amLODIPine BESYLATE 5 MG TAB PO SCH (07:41)
[2017-12-05] MEDS: CLOPIDOGREL BISULFATE 75 MG TAB PO SCH (07:41)
[2017-12-05] MEDS: NICOTINE 14 MG/24 HR PATCH TD SCH (07:42)
[2017-12-05] MEDS: INSULIN LISPRO 100 UNIT/ML SC SCH ×3 (07:53→16:51)
--- NOTE | 2017-12-05 13:02 | SOAPPROG ---
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 * Initial functional independence measure is 84 on 12/03/2017. Standby assist/ supervision for bed mobility. Transfers with standby assist and front wheeled walker. Ambulated 100 ft standby assist with front wheeled walker. Has left lower extremity weakness and inconsistent foot placement. Grooming and hygiene are done seated. Upper body dressing requires setup and standby assist. Lower body dressing requires contact guard assist for balance. Bathing is done with contact guard assist. He has reduced visual acuity, 20/50 on the right, and 20/ 40 on the left. * Ambulated 140 ft on 12/04/2017. * Continue PT and OT to optimize mobility and ADLs toward the independent to modified-independent level. Dysarthria, mild to moderate. Continue Speech and Language Pathology. Diabetes mellitus, type 2. Glargine insulin dosing changed from 36 units BID to 30 units subcutaneous in the morning and 42 units subcutaneous at bedtime starting 11/27/2017. Insulin can be more easily adjusted based on his fasting the next morning. Continue metformin; he reports intolerance to higher dose in the past.. Continue pioglitazone, with dose reduced from 30 mg to 15 mg daily due to interaction with clopidogrel. * Fasting range is 139-177 over past 3 days as of 11/30/2017. Will increase HS glargine from 40 to units to 45 units starting 11/30/2017. * Fasting running low last several days as of 12/03/2017. Reduce a.m. Glargine from 30 to 28 units; reduce p.m. Glargine from 45 to 42 units. * Fasting 81 on 12/05/2017. Reduce glargine further to 25 units q.a.m. and 40 units at bedtime. Hypertension, and orthostatic hypotension. Orthostatic symptoms improved, 2017. * Initiated amlodipine 5 mg q.day starting 12/05/2017 after discontinuation of labetalol. * Initiated candesartan 8 mg at HS 11/29/2017 to control nocturnal hypertension. ARB is indicated in diabetic, and duration of candesartan is the shortest of the available ARBs so should contribute the least to daytime orthostasis. * Reduced labetalol dose from 600 mg twice daily to 300 mg twice daily, 2017. Continued very orthostatic with symptoms on 12/03/2017. Reduced labetalol further from 300 mg to 200 mg twice daily starting afternoon of 2017. Discontinued labetalol starting 12/05/2017, to allow heart rate response to orthostasis. * Continue compression stockings. Malaise and subjective fever, 12/04/2017. No specific symptoms of infection. Observe. Dyslipidemia. Continue atorvastatin. Dose was increased in the hospital from 40 mg to 80 mg at bedtime. Secondary prevention of CVA. Continue glycemic control, blood pressure control , atorvastatin for dyslipidemia, and aspirin and clopidogrel. After 1 month, ( 12/22/2017) the plan is to discontinue the clopidogrel. He will be referred to Cardiology upon discharge for placement of an implanted cardiac rhythm monitor to rule out occult atrial fibrillation. If he shows any signs or symptoms of dysrhythmias, we will get an EKG on the rehabilitation unit. Tobacco dependence syndrome. He reports he has quit smoking now that he has had a stroke. He is receiving nicotine patch and this will be continued. History of depression. Continue paroxetine. This will probably also suffice to enhance neuro-recovery, though fluoxetine is the SSRI about which there is data. Obesity. He will have a administrative judge consult. He has been placed on a 2200 kilocalorie per day controlled-carbohydrate diet. Vertebral dissection. Secondary prevention for cerebrovascular accident will also help prevent recurrence of vertebral dissection. DISPOSITION: Lives alone and with no local family, but has pole a local friends who can provide some help. Lid lives in apartment with no steps to enter. Tentative discharge date set for 12/11/2017. FOLLOWUP: 1. He is to see neurologist, Dr. Reilly Robles, in approximately 3 weeks (12/18/2017) which will likely be after his discharge. 2. He will follow up with Cardiology for a 30-day cardiac loop recorder. 3. His primary care provider is Mikayla Zhu MD, whom he can see in approximately 2 weeks (12/11/2017). 12/05/17 13:03 Subjective: Complains of an aching pain in his left hip. It does not interfere with sleep or with activities including standing and ambulating. He reports a chronic issue. He does not want pain medications for it. Otherwise without complaints. Sleeping well, no cough or dyspnea, no fevers or chills. Denies orthostatic symptoms today. Objective: Vital Signs Temp Pulse Resp BP Pulse Ox 36.4 C 89 14 145/96 H 96 12/05/17 07:52 12/05/17 07:52 12/05/17 07:52 12/05/17 07:52 12/05/17 07:52 Laboratory Results 11/28/17 06:03 11/28/17 06:03 12/04/17 12/05/17 12/06/17 05:59 05:59 05:59 Intake Total 1440 3651 240 Output Total 850 500 Balance 590 3151 240 Physical Exam - Physical Exam General Appearance: WD/WN, alert, no apparent distress, obese Respiratory: normal breath sounds, No crackles, No rhonchi, No wheezing Cardiac/Chest: regular rate, rhythm, No edema (Trace, left pretibial), No diastolic murmur, No systolic murmur Skin: normal color, warm/dry Neuro/Psych: alert, normal mood/affect, oriented x 3, motor weakness (Left lower leg with ataxia, plus-minus footdrop.), speech abnormalities (Mild dysarthria) ICD10 Worksheet Patient Problems: Problems Problem Status Onset CVA (cerebral vascular accident) Acute HTN (hypertension) Acute Vertebral artery dissection Acute
--- NOTE | 2017-12-05 17:22 | PDOREHIP ---
Admission [facility] - Admission - 3 Day Assessment Period Admission Date/Day 1: 11/27/17 Day 2: 11/28/17 Day 3: 11/29/17 - Active Diagnoses Comorbidities and Co-existing Conditions at Admission: 52788. DM (e.g. diabetic retinopathy, nephropathy, and neuropathy) - Skin Conditions Unhealed Pressure Ulcer (1 or more/Stage 1 or >)-Admission: 0. No (Late entry) Discharge [facility] - Discharge - 3 Day Assessment Period 2 Days Prior to Anticipated Discharge Date: 12/10/17 1 Day Prior to Anticipated Discharge Date: 12/11/17 Anticipated Discharge Date: 12/12/17
[2017-12-05] MEDS: ATORVASTATIN CALCIUM 40 MG TAB PO SCH (20:47)
[2017-12-05] MEDS: CANDESARTAN CILEXETIL 8 MG TAB PO SCH (20:47)
[2017-12-05] MEDS: PARoxetine HCL 20 MG TAB PO SCH (20:48)
[2017-12-06] MEDS: ENOXAPARIN 30 MG/0.3 ML SYR SC SCH (08:53)
[2017-12-06] MEDS: amLODIPine BESYLATE 5 MG TAB PO SCH (08:53)
[2017-12-06] MEDS: metFORMIN SR 500 MG TAB PO SCH (08:53)
[2017-12-06] MEDS: INSULIN LISPRO 100 UNIT/ML SC SCH ×3 (08:54→16:54)
[2017-12-06] MEDS: CLOPIDOGREL BISULFATE 75 MG TAB PO SCH (08:54)
[2017-12-06] MEDS: PIOGLITAZONE HCL 15 MG TAB PO SCH (08:54)
[2017-12-06] MEDS: NICOTINE 14 MG/24 HR PATCH TD SCH (08:54)
[2017-12-06] MEDS: ASPIRIN EC 81 MG TAB PO SCH (08:54)
[2017-12-06] MEDS: INSULIN GLARGINE 100 UNITS/ML UNIT SC SCH ×2 (08:56→21:20)
[2017-12-06] MEDS ORDERED: hydrALAZINE 10 MG TAB PO ONE (15:43)
[2017-12-06] MEDS ORDERED: hydrALAZINE 10 MG TAB PO PRN (16:33)
--- NOTE | 2017-12-06 16:33 | SOAPPROG ---
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 * Initial functional independence measure is 84 on 12/03/2017. Standby assist/ supervision for bed mobility. Transfers with standby assist and front wheeled walker. Ambulated 100 ft standby assist with front wheeled walker. Has left lower extremity weakness and inconsistent foot placement. Grooming and hygiene are done seated. Upper body dressing requires setup and standby assist. Lower body dressing requires contact guard assist for balance. Bathing is done with contact guard assist. He has reduced visual acuity, 20/50 on the right, and 20/ 40 on the left. * Ambulating 140 ft multiple times a day. Ambulates to therapy sessions and to meals. * Continue PT and OT to optimize mobility and ADLs toward the independent to modified-independent level. Dysarthria, mild to moderate. Continue Speech and Language Pathology. Diabetes mellitus, type 2. Glargine insulin dosing changed from 36 units BID to 30 units subcutaneous in the morning and 42 units subcutaneous at bedtime starting 11/27/2017. Insulin can be more easily adjusted based on his fasting the next morning. Continue metformin; he reports intolerance to higher dose in the past.. Continue pioglitazone, with dose reduced from 30 mg to 15 mg daily due to interaction with clopidogrel. * Fasting range is 139-177 over past 3 days as of 11/30/2017. Will increase HS glargine from 40 to units to 45 units starting 11/30/2017. * Fasting running low last several days as of 12/03/2017. Reduce a.m. Glargine from 30 to 28 units; reduce p.m. Glargine from 45 to 42 units. * Fasting 81 on 12/05/2017. Reduce glargine further to 25 units q.a.m. and 40 units at bedtime. Hypertension, and orthostatic hypotension. Orthostatic symptoms improved, 2017. * Initiated amlodipine 5 mg q.day starting 12/05/2017 after discontinuation of labetalol. * Initiated candesartan 8 mg at HS 11/29/2017 to control nocturnal hypertension. ARB is indicated in diabetic, and duration of candesartan is the shortest of the available ARBs so should contribute the least to daytime orthostasis. With elevated blood pressure, increase candesartan to twice daily starting 2017. Had single dose of hydralazine 10 mg 12/06/2017 in the afternoon. Or hydralazine 10 mg four times daily p.r.n. systolic blood pressure greater than 160. * Reduced labetalol dose from 600 mg twice daily to 300 mg twice daily, 2017. Continued very orthostatic with symptoms on 12/03/2017. Reduced labetalol further from 300 mg to 200 mg twice daily starting afternoon of 2017. Discontinued labetalol starting 12/05/2017, to allow heart rate response to orthostasis. * Continue compression stockings. Malaise and subjective fever, 12/04/2017. No specific symptoms of infection. Observe. Dyslipidemia. Continue atorvastatin. Dose was increased in the hospital from 40 mg to 80 mg at bedtime. Secondary prevention of CVA. Continue glycemic control, blood pressure control , atorvastatin for dyslipidemia, and aspirin and clopidogrel. After 1 month, ( 12/22/2017) the plan is to discontinue the clopidogrel. He will be referred to Cardiology upon discharge for placement of an implanted cardiac rhythm monitor to rule out occult atrial fibrillation. If he shows any signs or symptoms of dysrhythmias, we will get an EKG on the rehabilitation unit. Tobacco dependence syndrome. He reports he has quit smoking now that he has had a stroke. He is receiving nicotine patch and this will be continued. History of depression. Continue paroxetine. This will probably also suffice to enhance neuro-recovery, though fluoxetine is the SSRI about which there is data. Obesity. He will have a [employer] worker consult. He has been placed on a 2200 kilocalorie per day controlled-carbohydrate diet. Vertebral dissection. Secondary prevention for cerebrovascular accident will also help prevent recurrence of vertebral dissection. Prophylaxis. Mobility is much improved. Will discontinue enoxaparin starting . DISPOSITION: Lives alone and with no local family, but has local friends who can provide some help. Lives in apartment with no steps to enter. Tentative discharge date set for 12/11/2017. FOLLOWUP: 1. He is to see neurologist, Dr. Reilly Robles, in approximately 3 weeks (12/18/2017) which will likely be after his discharge. 2. He will follow up with Cardiology for a 30-day cardiac loop recorder. 3. His primary care provider is Mikayla Zhu MD, whom he can see in approximately 2 weeks (12/11/2017). 12/06/17 16:40 Subjective: Had headache this afternoon and nursing found his blood pressure to be markedly elevated, 190/110. He was not orthostatic. He denies orthostatic symptoms. Otherwise without complaints. No dyspnea or cough, no chest pain. No constipation, no difficulty urinating. Objective: Vital Signs Temp Pulse Resp BP Pulse Ox 37.1 C 100 16 190/110 H 95 12/06/17 08:00 12/06/17 15:49 12/06/17 08:00 12/06/17 15:49 12/06/17 08:00 Laboratory Results 11/28/17 06:03 11/28/17 06:03 12/05/17 12/06/17 12/07/17 05:59 05:59 05:59 Intake Total 3651 1560 240 Output Total 500 800 300 Balance 3151 760 -60 Physical Exam - Physical Exam General Appearance: WD/WN, alert, no apparent distress, obese Respiratory: normal breath sounds, No crackles, No rhonchi, No wheezing Cardiac/Chest: regular rate, rhythm, No edema, No diastolic murmur, No systolic murmur Skin: normal color, warm/dry Neuro/Psych: alert, normal mood/affect, oriented x 3 ICD10 Worksheet Patient Problems: Problems Problem Status Onset CVA (cerebral vascular accident) Acute HTN (hypertension) Acute Vertebral artery dissection Acute
[2017-12-06] MEDS: ATORVASTATIN CALCIUM 40 MG TAB PO SCH (21:19)
[2017-12-06] MEDS: PARoxetine HCL 20 MG TAB PO SCH (21:19)
[2017-12-06] MEDS: CANDESARTAN CILEXETIL 8 MG TAB PO SCH (21:19)
[2017-12-07] MEDS: amLODIPine BESYLATE 5 MG TAB PO SCH (08:05)
[2017-12-07] MEDS: CLOPIDOGREL BISULFATE 75 MG TAB PO SCH (08:06)
[2017-12-07] MEDS: PIOGLITAZONE HCL 15 MG TAB PO SCH (08:06)
[2017-12-07] MEDS: NICOTINE 14 MG/24 HR PATCH TD SCH (08:06)
[2017-12-07] MEDS: ASPIRIN EC 81 MG TAB PO SCH (08:06)
[2017-12-07] MEDS: metFORMIN SR 500 MG TAB PO SCH (08:06)
[2017-12-07] MEDS: CANDESARTAN CILEXETIL 8 MG TAB PO SCH ×2 (08:07→20:45)
[2017-12-07] MEDS: INSULIN GLARGINE 100 UNITS/ML UNIT SC SCH ×3 (08:08→20:45)
[2017-12-07] MEDS: INSULIN LISPRO 100 UNIT/ML SC SCH ×3 (08:36→17:31)
--- NOTE | 2017-12-07 14:11 | SOAPPROG ---
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 * Initial functional independence measure is 84 on 12/03/2017. Standby assist/ supervision for bed mobility. Transfers with standby assist and front wheeled walker. Ambulated 100 ft standby assist with front wheeled walker. Has left lower extremity weakness and inconsistent foot placement. Grooming and hygiene are done seated. Upper body dressing requires setup and standby assist. Lower body dressing requires contact guard assist for balance. Bathing is done with contact guard assist. He has reduced visual acuity, 20/50 on the right, and 20/ 40 on the left. * Ambulating 140 ft multiple times a day. Ambulates to therapy sessions and to meals. * Continue PT and OT to optimize mobility and ADLs toward the independent to modified-independent level. Dysarthria, mild to moderate. Continue Speech and Language Pathology. Diabetes mellitus, type 2. Glargine insulin dosing changed from 36 units BID to 30 units subcutaneous in the morning and 42 units subcutaneous at bedtime starting 11/27/2017. Insulin can be more easily adjusted based on his fasting the next morning. Continue metformin; he reports intolerance to higher dose in the past.. Continue pioglitazone, with dose reduced from 30 mg to 15 mg daily due to interaction with clopidogrel. * Fasting range is 139-177 over past 3 days as of 11/30/2017. Will increase HS glargine from 40 to units to 45 units starting 11/30/2017. * Fasting running low last several days as of 12/03/2017. Reduce a.m. Glargine from 30 to 28 units; reduce p.m. Glargine from 45 to 42 units. * Fasting 81 on 12/05/2017. Reduce glargine further to 25 units q.a.m. and 40 units at bedtime. Hypertension, and orthostatic hypotension. Orthostatic symptoms improved, 2017. * Initiated amlodipine 5 mg q.day starting 12/05/2017 after discontinuation of labetalol. * Initiated candesartan 8 mg at HS 11/29/2017 to control nocturnal hypertension. ARB is indicated in diabetic, and duration of candesartan is the shortest of the available ARBs so should contribute the least to daytime orthostasis. * With elevated blood pressure, increase candesartan to twice daily starting . Had single dose of hydralazine 10 mg 12/06/2017 in the afternoon. Or hydralazine 10 mg four times daily p.r.n. systolic blood pressure greater than 160. * Discontinued labetalol starting 12/05/2017, to allow heart rate response to orthostasis. * Continue compression stockings. Malaise and subjective fever, 12/04/2017. No specific symptoms of infection. Observe. Dyslipidemia. Continue atorvastatin. Dose was increased in the hospital from 40 mg to 80 mg at bedtime. Secondary prevention of CVA. Continue glycemic control, blood pressure control , atorvastatin for dyslipidemia, and aspirin and clopidogrel. After 1 month, ( 12/22/2017) the plan is to discontinue the clopidogrel. He will be referred to Cardiology upon discharge for placement of an implanted cardiac rhythm monitor to rule out occult atrial fibrillation. If he shows any signs or symptoms of dysrhythmias, we will get an EKG on the rehabilitation unit. Tobacco dependence syndrome. He reports he has quit smoking now that he has had a stroke. He is receiving nicotine patch and this will be continued. History of depression. Continue paroxetine. This will probably also suffice to enhance neuro-recovery, though fluoxetine is the SSRI about which there is data. Obesity. He will have a workday consultant consult. He has been placed on a 2200 kilocalorie per day controlled-carbohydrate diet. Vertebral dissection. Secondary prevention for cerebrovascular accident will also help prevent recurrence of vertebral dissection. Prophylaxis. Mobility is much improved. Will discontinue enoxaparin starting . DISPOSITION: Lives alone and with no local family, but has local friends who can provide some help. Lives in apartment with no steps to enter. Tentative discharge date set for 12/11/2017. FOLLOWUP: 1. He is to see neurologist, Dr. Reilly Robles, in approximately 3 weeks (12/18/2017) which will likely be after his discharge. 2. He will follow up with Cardiology for a 30-day cardiac loop recorder. 3. His primary care provider is Mikayla Zhu MD, whom he can see in approximately 2 weeks (12/11/2017). 12/06/17 16:40 12/07/17 14:09 Subjective: No complaints. No orthostatic symptoms. High blood pressure yesterday evening and had abdominal discomfort overnight. Discomfort was relieved when he moved bowels after drinking coffee this morning. Otherwise no complaints. Objective: Vital Signs Temp Pulse Resp BP Pulse Ox 36.8 C 93 16 140/107 H 95 12/07/17 07:58 12/07/17 07:58 12/07/17 06:00 12/07/17 08:07 12/07/17 07:58 Laboratory Results 11/28/17 06:03 11/28/17 06:03 12/06/17 12/07/17 12/08/17 05:59 05:59 05:59 Intake Total 1560 1160 440 Output Total 800 800 600 Balance 760 360 -160 Physical Exam - Physical Exam General Appearance: WD/WN, alert, no apparent distress Respiratory: normal breath sounds, No crackles, No rhonchi, No wheezing Cardiac/Chest: regular rate, rhythm, No edema, No diastolic murmur, No systolic murmur Skin: normal color, warm/dry Neuro/Psych: alert, normal mood/affect, oriented x 3 ICD10 Worksheet Patient Problems: Problems Problem Status Onset CVA (cerebral vascular accident) Acute HTN (hypertension) Acute Vertebral artery dissection Acute
[2017-12-07] MEDS: ATORVASTATIN CALCIUM 40 MG TAB PO SCH (20:45)
[2017-12-07] MEDS: PARoxetine HCL 20 MG TAB PO SCH (20:45)
[2017-12-08] MEDS: NICOTINE 14 MG/24 HR PATCH TD SCH (08:02)
[2017-12-08] MEDS: metFORMIN SR 500 MG TAB PO SCH (08:02)
[2017-12-08] MEDS: INSULIN GLARGINE 100 UNITS/ML UNIT SC SCH ×2 (08:02→20:18)
[2017-12-08] MEDS: amLODIPine BESYLATE 5 MG TAB PO SCH (08:03)
[2017-12-08] MEDS: PIOGLITAZONE HCL 15 MG TAB PO SCH (08:03)
[2017-12-08] MEDS: CLOPIDOGREL BISULFATE 75 MG TAB PO SCH (08:03)
[2017-12-08] MEDS: ASPIRIN EC 81 MG TAB PO SCH (08:03)
[2017-12-08] MEDS: CANDESARTAN CILEXETIL 8 MG TAB PO SCH ×2 (08:03→20:18)
[2017-12-08] MEDS: INSULIN LISPRO 100 UNIT/ML SC SCH ×3 (08:04→17:02)
[2017-12-08] MEDS: ACETAMINOPHEN 325 MG TAB PO PRN ×2 (10:04→17:45)
--- NOTE | 2017-12-08 13:30 | HOSPPROG ---
Hospitalist Progress Note Assessment/Plan: Assessment: 42 yo M p/w acute CVA 2/2 vertebral dissection w/ residual L hemiparesis/ataxia/dysarthria Plan: # CVA. Multifocal R side w/ L hemiparesis/ataxia/dysarthria -ongoing therapy needs # HTN. Chronic, ongoing orthostasis (asymptomatic) despite stopping bblocker -SBP 150-160 o/n, lowest w/ orthostatic VS 130s, trial uptitration of amlodipine to 10mg and gauge effect # DM2. FBG 110, range 111-172 -cont on orals+lantus+ISS # Morbid obesity. BMI 37+, increases risk for worsening mobility/morbidity # Vertebral dissection, goal SBP < 140 Diet. Regular PPx. SCDs Code. Full Dispo. Lives alone and with no local family, but has local friends who can provide some help. Lives in apartment with no steps to enter. Tentative discharge date set for 12/11/2017. Subjective: denies pain, says he was asymptomatic when his orthostatic VS taken Objective: Vital Signs Temp Pulse Resp BP Pulse Ox 37.2 C 95 14 151/98 H 95 12/08/17 10:00 12/08/17 10:00 12/08/17 10:00 12/08/17 10:00 12/08/17 10:00 Laboratory Results 11/28/17 06:03 11/28/17 06:03 12/07/17 12/08/17 12/09/17 05:59 05:59 05:59 Intake Total 1160 1330 360 Output Total 800 1100 Balance 360 230 360 - Physical Exam Constitutional: no apparent distress, appears nourished, not in pain, obese, No uncomfortable Cardiovascular: regular rate and rhythym, no murmur, rub, or gallop, No edema Respiratory: no respiratory distress, no rales or rhonchi, clear to auscultation Gastrointestinal: normoactive bowel sounds, soft, non-tender abdomen, distension (moderate), No guarding Neurologic: AAOx3, sensation intact bilaterally, weakness (LLE 4/5, ongoing dysarthria) Psychiatric: not anxious, not encephalopathic, flat affect ICD10 Worksheet Patient Problems: Problems Problem Status Onset CVA (cerebral vascular accident) Acute HTN (hypertension) Acute Vertebral artery dissection Acute
[2017-12-08] MEDS ORDERED: amLODIPine BESYLATE 5 MG TAB PO ONE (14:07)
[2017-12-08] MEDS: ATORVASTATIN CALCIUM 40 MG TAB PO SCH (20:17)
[2017-12-08] MEDS: PARoxetine HCL 20 MG TAB PO SCH (20:47)
[2017-12-09] MEDS: INSULIN LISPRO 100 UNIT/ML SC SCH ×3 (07:27→16:54)
[2017-12-09] MEDS: metFORMIN SR 500 MG TAB PO SCH (07:33)
[2017-12-09] MEDS: PIOGLITAZONE HCL 15 MG TAB PO SCH (07:34)
[2017-12-09] MEDS: amLODIPine BESYLATE 5 MG TAB PO SCH (07:34)
[2017-12-09] MEDS: CLOPIDOGREL BISULFATE 75 MG TAB PO SCH (07:34)
[2017-12-09] MEDS: CANDESARTAN CILEXETIL 8 MG TAB PO SCH ×2 (07:34→20:46)
[2017-12-09] MEDS: NICOTINE 14 MG/24 HR PATCH TD SCH (07:35)
[2017-12-09] MEDS: INSULIN GLARGINE 100 UNITS/ML UNIT SC SCH ×2 (07:35→20:46)
[2017-12-09] MEDS: ASPIRIN EC 81 MG TAB PO SCH (07:35)
--- NOTE | 2017-12-09 12:55 | HOSPPROG ---
Hospitalist Progress Note Assessment/Plan: Assessment: 42 yo M p/w acute CVA 2/2 vertebral dissection w/ residual L hemiparesis/ataxia/dysarthria Plan: # CVA. Multifocal R side w/ L hemiparesis/ataxia/dysarthria -ongoing therapy needs # HTN. Chronic, ongoing orthostasis (asymptomatic) despite stopping bblocker -SBP 130-160 o/n, lowest w/ orthostatic VS 130s PRIOR to trial uptitration of amlodipine to 10mg -cont amlodipine at 10mg, candsartan bid, and gauge effect # DM2. FBG 110, range 111-172 -cont on orals+lantus+ISS # Morbid obesity. BMI 37+, increases risk for worsening mobility/morbidity # Vertebral dissection, goal SBP < 140 Diet. Regular PPx. SCDs Code. Full Dispo. Lives alone and with no local family, but has local friends who can provide some help. Lives in apartment with no steps to enter. Tentative discharge date set for 12/11/2017. Subjective: slept well for 8 hours, had BM Objective: Vital Signs Temp Pulse Resp BP Pulse Ox 37.0 C 95 14 142/97 H 95 12/09/17 10:00 12/09/17 10:00 12/09/17 10:00 12/09/17 10:00 12/09/17 10:00 Laboratory Results 11/28/17 06:03 11/28/17 06:03 12/08/17 12/09/17 12/10/17 05:59 05:59 05:59 Intake Total 1330 1230 960 Output Total 1100 550 Balance 230 680 960 - Physical Exam Constitutional: no apparent distress, appears nourished, not in pain, obese Cardiovascular: regular rate and rhythym, no murmur, rub, or gallop, No edema Respiratory: no respiratory distress, no rales or rhonchi, clear to auscultation Gastrointestinal: normoactive bowel sounds, soft, non-tender abdomen, distension (moderately, obese) Neurologic: AAOx3, weakness (LUE/LLE 4/5 motor strength), facial droop (L facial palsy) Psychiatric: not anxious, not encephalopathic, flat affect, No agitated ICD10 Worksheet Patient Problems: Problems Problem Status Onset CVA (cerebral vascular accident) Acute HTN (hypertension) Acute Vertebral artery dissection Acute
[2017-12-09] MEDS: ACETAMINOPHEN 325 MG TAB PO PRN (15:34)
[2017-12-09] MEDS: PARoxetine HCL 20 MG TAB PO SCH (20:46)
[2017-12-09] MEDS: ATORVASTATIN CALCIUM 40 MG TAB PO SCH (20:46)
[2017-12-10] MEDS: amLODIPine BESYLATE 5 MG TAB PO SCH (07:30)
[2017-12-10] MEDS: ASPIRIN EC 81 MG TAB PO SCH (07:41)
[2017-12-10] MEDS: CLOPIDOGREL BISULFATE 75 MG TAB PO SCH (07:41)
[2017-12-10] MEDS: metFORMIN SR 500 MG TAB PO SCH (07:42)
[2017-12-10] MEDS: CANDESARTAN CILEXETIL 8 MG TAB PO SCH ×2 (08:51→20:59)
[2017-12-10] MEDS: PIOGLITAZONE HCL 15 MG TAB PO SCH (08:51)
[2017-12-10] MEDS: INSULIN GLARGINE 100 UNITS/ML UNIT SC SCH ×2 (08:59→20:59)
[2017-12-10] MEDS: INSULIN LISPRO 100 UNIT/ML SC SCH (09:18)
--- NOTE | 2017-12-10 12:09 | SOAPPROG ---
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 * Initial functional independence measure is 84 on 12/03/2017, improved to 111 as of 12/10/2017. Independent in his room. Ambulated 150 ft with a front wheeled walker and standby assist, or 50 ft independently. Has occasional left foot drag especially with fatigue. Independent or modified independent with activities of daily living. He has reduced visual acuity, 20/50 on the right, and 20/40 on the left. * Continue PT and OT to optimize mobility and ADLs toward the independent to modified-independent level. Dysarthria, mild to moderate. Continue Speech and Language Pathology. Diabetes mellitus, type 2. Glargine insulin dosing 25 units q.a.m. And 40 units at bedtime. Not using insulin sliding scale; discontinued on 12/10/2017 area Continue metformin; he reports intolerance to higher dose in the past.. Continue pioglitazone, with dose reduced from 30 mg to 15 mg daily due to interaction with clopidogrel. Hypertension, and orthostatic hypotension. Orthostatic symptoms improved, 2017. * Initiated amlodipine 5 mg q.day starting 12/05/2017 after discontinuation of labetalol. Increased to 10 mg q.day starting 12/09/2017. * Initiated candesartan 8 mg at HS 11/29/2017 to control nocturnal hypertension. ARB is indicated in diabetic, and duration of candesartan is the shortest of the available ARBs so should contribute the least to daytime orthostasis. * With elevated blood pressure, increase candesartan to twice daily starting . Had single dose of hydralazine 10 mg 12/06/2017 in the afternoon. On hydralazine 10 mg four times daily p.r.n. systolic blood pressure greater than 160. * Discontinued labetalol starting 12/05/2017, to allow heart rate response to orthostasis. * Continue compression stockings. Malaise and subjective fever, 12/04/2017. No specific symptoms of infection. Observe. Dyslipidemia. Continue atorvastatin. Dose was increased in the hospital from 40 mg to 80 mg at bedtime. Secondary prevention of CVA. Continue glycemic control, blood pressure control , atorvastatin for dyslipidemia, and aspirin and clopidogrel. After 1 month, ( 12/22/2017) the plan is to discontinue the clopidogrel. He will be referred to Cardiology upon discharge for placement of an implanted cardiac rhythm monitor to rule out occult atrial fibrillation. If he shows any signs or symptoms of dysrhythmias, we will get an EKG on the rehabilitation unit. Tobacco dependence syndrome. He reports he has quit smoking now that he has had a stroke. He is receiving nicotine patch and this will be continued. History of depression. Continue paroxetine. This will probably also suffice to enhance neuro-recovery, though fluoxetine is the SSRI about which there is data. Obesity. He will have a manager government consult. He has been placed on a 2200 kilocalorie per day controlled-carbohydrate diet. Vertebral dissection. Secondary prevention for cerebrovascular accident will also help prevent recurrence of vertebral dissection. Prophylaxis. Mobility is much improved. Will discontinue enoxaparin starting . DISPOSITION: Attended staffing, 15 min. Discussed with PT, OT, HOOP CUTTER, case management, dietitian, nursing. Lives alone and with no local family, but has local friends who can provide some help. Lives in apartment with no steps to enter. Plan for discharge 12/12/2017. FOLLOWUP: 1. He is to see neurologist, Dr. Reilly Robles, in approximately 3 weeks (12/18/2017) which will likely be after his discharge. 2. He will follow up with Cardiology for a 30-day cardiac loop recorder. 3. His primary care provider is Mikayla Zhu MD, whom he can see in approximately 2 weeks (12/11/2017). 12/10/17 12:03 Subjective: No complaints. Sleeping well. Not in pain. No fevers or chills, no cough or dyspnea. Objective: Vital Signs Temp Pulse Resp BP Pulse Ox 36.9 C 94 18 141/100 H 94 12/10/17 10:00 12/10/17 10:00 12/10/17 10:00 12/10/17 10:00 12/10/17 10:00 Laboratory Results 11/28/17 06:03 11/28/17 06:03 12/09/17 12/10/17 12/11/17 05:59 05:59 05:59 Intake Total 1230 2000 Output Total 550 1100 Balance 680 900 - Time Spent With Patient Time Spent With Patient: Greater than 35 min floor time today, including more than 50% of time in coordination of care during staffing meeting, and counseling patient. Physical Exam - Physical Exam General Appearance: WD/WN, alert, no apparent distress, obese Respiratory: No respiratory distress, No accessory muscle use Skin: normal color, warm/dry Neuro/Psych: alert, normal mood/affect, oriented x 3, speech abnormalities ( Mild dysarthria) ICD10 Worksheet Patient Problems: Problems Problem Status Onset CVA (cerebral vascular accident) Acute HTN (hypertension) Acute Vertebral artery dissection Acute
[2017-12-10] MEDS: NICOTINE 14 MG/24 HR PATCH TD SCH (12:11)
[2017-12-10] MEDS: PARoxetine HCL 20 MG TAB PO SCH (20:59)
[2017-12-10] MEDS: ATORVASTATIN CALCIUM 40 MG TAB PO SCH (20:59)
[2017-12-11] MEDS: NICOTINE 14 MG/24 HR PATCH TD SCH (08:09)
[2017-12-11] MEDS: CLOPIDOGREL BISULFATE 75 MG TAB PO SCH (08:10)
[2017-12-11] MEDS: metFORMIN SR 500 MG TAB PO SCH (08:10)
[2017-12-11] MEDS: CANDESARTAN CILEXETIL 8 MG TAB PO SCH ×2 (08:11→21:17)
[2017-12-11] MEDS: amLODIPine BESYLATE 5 MG TAB PO SCH (08:12)
[2017-12-11] MEDS: PIOGLITAZONE HCL 15 MG TAB PO SCH (08:12)
[2017-12-11] MEDS: ASPIRIN EC 81 MG TAB PO SCH (08:12)
[2017-12-11] MEDS: INSULIN GLARGINE 100 UNITS/ML UNIT SC SCH ×2 (09:04→21:25)
--- NOTE | 2017-12-11 14:20 | SOAPPROG ---
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 * Initial functional independence measure is 84 on 12/03/2017, improved to 111 as of 12/10/2017. Independent in his room. Ambulated 150 ft with a front wheeled walker and standby assist, or 50 ft independently. Has occasional left foot drag especially with fatigue. Independent or modified independent with activities of daily living. He has reduced visual acuity, 20/50 on the right, and 20/40 on the left. * Continue PT and OT to optimize mobility and ADLs toward the independent to modified-independent level. Dysarthria, mild to moderate. Continue Speech and Language Pathology. Diabetes mellitus, type 2. Glargine insulin dosing 25 units q.a.m. and 43 units at bedtime. Not using insulin sliding scale; discontinued on 12/10/2017 area Continue metformin; he reports intolerance to higher dose in the past.. Continue pioglitazone, with dose reduced from 30 mg to 15 mg daily due to interaction with clopidogrel. Hypertension, and orthostatic hypotension. Orthostatic symptoms improved, 2017. * Initiated amlodipine 5 mg q.day starting 12/05/2017 after discontinuation of labetalol. Increased to 10 mg q.day starting 12/09/2017. * Initiated candesartan 8 mg at HS 11/29/2017 to control nocturnal hypertension. ARB is indicated in diabetic, and duration of candesartan is the shortest of the available ARBs so should contribute the least to daytime orthostasis. With elevated blood pressure, increased candesartan to twice daily starting 2017. Increased to 12 units twice daily starting 12/11/2017. * Had single dose of hydralazine 10 mg 12/06/2017 in the afternoon. * Discontinued labetalol starting 12/05/2017, to allow heart rate response to orthostasis. * Continue compression stockings. Malaise and subjective fever, 12/04/2017. No specific symptoms of infection. Observe. Dyslipidemia. Continue atorvastatin. Dose was increased in the hospital from 40 mg to 80 mg at bedtime. Secondary prevention of CVA. Continue glycemic control, blood pressure control , atorvastatin for dyslipidemia, and aspirin and clopidogrel. After 1 month, ( 12/22/2017) the plan is to discontinue the clopidogrel. He will be referred to Cardiology upon discharge for placement of an implanted cardiac rhythm monitor to rule out occult atrial fibrillation. If he shows any signs or symptoms of dysrhythmias, we will get an EKG on the rehabilitation unit. Tobacco dependence syndrome. He reports he has quit smoking now that he has had a stroke. He is receiving nicotine patch and this will be continued. History of depression. Continue paroxetine. This will probably also suffice to enhance neuro-recovery, though fluoxetine is the SSRI about which there is data. Obesity. He will have a cooler conveyor loader consult. He has been placed on a 2200 kilocalorie per day controlled-carbohydrate diet. Vertebral dissection. Secondary prevention for cerebrovascular accident will also help prevent recurrence of vertebral dissection. Prophylaxis. Mobility is much improved. Will discontinue enoxaparin starting . DISPOSITION: Lives alone and with no local family, but has local friends who can provide some help. Lives in apartment with no steps to enter. Plan for discharge 12/12/2017. FOLLOWUP: 1. He is to see neurologist, Dr. Reilly Robles, in approximately 3 weeks (12/18/2017) which will likely be after his discharge. 2. He will follow up with Cardiology for a 30-day cardiac loop recorder. 3. He will see his craft superintendent Dr. Twyla Gardner after discharge. 4. His primary care provider is Mikayla Zhu MD, whom he can see in approximately 2 weeks (12/11/2017). 12/11/17 14:15 Subjective: No concerns. Still notices some communication issues. Ready to go home tomorrow. Not in pain, no cough or dyspnea, no fevers or chills. Objective: Vital Signs Temp Pulse Resp BP Pulse Ox 36.7 C 93 14 152/104 H 96 12/11/17 08:05 12/11/17 08:05 12/11/17 08:05 12/11/17 08:12 12/11/17 08:05 Laboratory Results 11/28/17 06:03 11/28/17 06:03 12/10/17 12/11/17 12/12/17 05:59 05:59 05:59 Intake Total 2000 1200 480 Output Total 1100 850 Balance 900 350 480 Physical Exam - Physical Exam General Appearance: WD/WN, alert, no apparent distress, obese Respiratory: No respiratory distress, No accessory muscle use Skin: normal color, warm/dry Neuro/Psych: alert, normal mood/affect, oriented x 3, speech abnormalities ( Mild dysarthria) ICD10 Worksheet Patient Problems: Problems Problem Status Onset CVA (cerebral vascular accident) Acute HTN (hypertension) Acute Vertebral artery dissection Acute
--- NOTE | 2017-12-11 15:25 | PDOREHIP ---
Admission [facility] - Admission - 3 Day Assessment Period Admission Date/Day 1: 11/27/17 Day 2: 11/28/17 Day 3: 11/29/17 Discharge [facility] - Discharge - 3 Day Assessment Period 2 Days Prior to Anticipated Discharge Date: 12/10/17 1 Day Prior to Anticipated Discharge Date: 12/11/17 Anticipated Discharge Date: 12/12/17 - Discharge Skin Conditions Unhealed Pressure Ulcer (1 or more/Stage 1 or >)-Discharge: 0. No
[2017-12-11] MEDS: ATORVASTATIN CALCIUM 40 MG TAB PO SCH (21:16)
[2017-12-11] MEDS: PARoxetine HCL 20 MG TAB PO SCH (21:18)
[2017-12-12] MEDS: INSULIN GLARGINE 100 UNITS/ML UNIT SC SCH (08:00)
[2017-12-12] MEDS: metFORMIN SR 500 MG TAB PO SCH (08:01)
[2017-12-12] MEDS: CANDESARTAN CILEXETIL 8 MG TAB PO SCH (08:02)
[2017-12-12] MEDS: CLOPIDOGREL BISULFATE 75 MG TAB PO SCH (08:02)
[2017-12-12] MEDS: PIOGLITAZONE HCL 15 MG TAB PO SCH (08:02)
[2017-12-12] MEDS: amLODIPine BESYLATE 5 MG TAB PO SCH (08:03)
[2017-12-12] MEDS: NICOTINE 14 MG/24 HR PATCH TD SCH (08:04)
[2017-12-12] MEDS: ASPIRIN EC 81 MG TAB PO SCH (08:04)
[2017-12-12 08:06] VITALS: BP 150/94
--- NOTE | 2017-12-12 14:48 | GDS ---
ADMISSION DIAGNOSIS: Cerebrovascular accident. DISCHARGE DIAGNOSIS: Cerebrovascular accident. OTHER DISCHARGE DIAGNOSES: 1. Diabetes mellitus type 2. 2. Hypertension and orthostatic hypotension. 3. Dyslipidemia. 4. Tobacco dependence syndrome. 5. Vertebral dissection. PROCEDURES: There were none. COMPLICATIONS: There were none. CONSULTATIONS: There were none. HISTORY AND HOSPITAL COURSE: This patient was admitted from [facility]. He had presented there on 12/03/2017 with left-sided weakness. While he was there, he also had a hypertensive emergency with systolic blood pressure in the 260s. Blood pressure control was initially achieved with IV labetalol. MRI showed a small punctate acute lacunar infarcts in the right ventral thalamus, right posterior limb of the internal capsule, right parietal lobe white matter and right occipital lobe white matter. Head and neck CT angiogram showed a left vertebral artery dissection. Transthoracic echo was negative for intracardiac shunting. He was treated with permissive hypertension for the first 24 hours and then blood pressure control was achieved with labetalol, which was titrated with a goal blood pressure of less than 130/80 to 600 mg twice daily. He was medically stabilized and appropriate for inpatient rehabilitation. He did well in rehabilitation. His initial functional independence measure was 84 on 12/03/2017, which is consistent with assisted living level of function. He improved to 111 as of 12/10/2017, which is consistent with independent living. He was independent in his room. He had ambulated 150 feet with a front -wheeled walker and standby assist or 50 feet independently. There was occasional left foot drag, especially with fatigue. He was independent or modified independent using an assistive device with activities of daily living. He had dysarthria, which improved with speech therapy. He had diabetes mellitus type 2. He had adjustment of his insulin during his stay. Pioglitazone dose was reduced from 30 mg to 15 mg due to interaction with clopidogrel. As of the day of discharge, he was changed to his home Degludec insulin, and his dosing was 25 units in the morning and 43 units at bedtime. He was beginning to have low blood sugars in the morning in the 70s or 80s, so he can lower the Degludec dose once he is home. He had no need for insulin sliding scale. Regarding hypertension, he was noted to be markedly orthostatic with significant orthostatic symptoms. His labetalol was tapered and eventually discontinued to allow a heart rate response to orthostasis. He was treated with compression stockings to help centralize peripheral blood. He was started initially on candesartan 8 mg at bedtime, which was chosen due to his diabetes, as well as its relatively short duration of action in case it gave him orthostasis. He had recovery in his blood pressure. He was started on amlodipine which he had been taking prior to his hospitalization, initially at 5 mg daily and then increased to 10 mg daily as of 12/09/2017. Subsequently, he had titration of candesartan to 12 mg twice daily. On the day of discharge, his blood pressure ranged from 132/88 to 150/94. Regarding secondary prevention of CVA, his atorvastatin dose had been increased from 40 mg to 80 mg at HS while he was in the hospital, and he was continued on this dose. He was begun on clopidogrel, intended to continue for 1 month, which would be through 12/22/2017. As clopidogrel interacts with pioglitazone, the pioglitazone dose had been decreased. He should monitor his blood sugars after 12/22/2017, and consider increasing the pioglitazone to 30 mg that he was taking prior to his hospitalization. He was a smoker prior to his stroke. He intended to quit smoking. He was managed on a nicotine patch which was continued on discharge. CONDITION UPON DISCHARGE: Good. ACTIVITY: Ad dian, but he should not be driving. DIET: No concentrated sweets, 2200 kilocalories per day, regular texture and thin liquids. MEDICATIONS ON DISCHARGE: 1. Acetaminophen 650 mg p.o. q.4 hours p.r.n. 2. Amlodipine 10 mg p.o. daily. 3. Aspirin 81 mg p.o. daily. 4. Atorvastatin 80 mg p.o. at bedtime. 5. Candesartan 12 mg p.o. twice daily. 6. Clopidogrel 75 mg p.o. daily through December 22, 2017. 7. Insulin, Degludec 23 units in the morning and 43 units in the evening. 8. Insulin, Lispro per sliding scale which he was not requiring while in the rehabilitation unit. 9. Loperamide 2 mg p.o. four times daily p.r.n. He needed 1 dose during his hospital rehabilitation stay. 10. Metformin SR 1000 mg p.o. daily at 1800. 11. Nicotine patch 14 mg per 24 hours daily. 12. Paroxetine 20 mg p.o. at bedtime. 13. Pioglitazone 15 mg p.o. daily. ISSUES TO BE ADDRESSED AT FOLLOWUP: 1. Functional status regarding mobility and ADLs. He will continue therapies with PT and OT and can follow up with his primary care provider. 2. Dysarthria is mostly resolved. He will continue Speech and Language Pathology. 3. Diabetes mellitus type 2. Decrease in his insulin, Degludec may be appropriate due to his low normal fastings. He will see his dietetic aide, Dr. Twyla Verduzco, after discharge. 4. Hypertension. He had no longer had orthostatic symptoms and blood pressure control was improved. Candesartan dose was titrated the day before discharge, so it may take several days to have its full effect on his blood pressure. He can follow up with his primary care provider, Dr. Mikayla Zhu, after his discharge. 5. Secondary prevention of CVA. Clopidogrel will be discontinued after December 22, 2017. Continue atorvastatin, aspirin, glycemic control and blood pressure control. Follow up with primary care, as well as Neurology, Reilly Robles MD, after his discharge. Additionally, as the etiology of the stroke was considered cryptogenic, he needs to see Cardiology for a 30 day cardiac loop recorder. Greater than 30 minutes was spent on this discharge including medication reconciliation, coordination of care, and counseling patient. Copy requested to: Dr. Twyla Verduzco /[id number]/MODL [id number]
== END 2017-12-12 12:35 | disposition home health service (06) | DRG 57 ==
LOC: BREH 18:51
PROVIDERS: ADMIT Internal Medicine; ATTEND Internal Medicine
PROC: F08Z7ZZ Vocational Activities and Functional Community or Work Reintegration Skills Treatment (ICD-10-PCS; principal; 2017-11-27)
PROC: F0636ZZ Communicative/Cognitive Integration Skills Treatment of Neurological System - Whole Body (ICD-10-PCS; principal; 2017-11-27)
PROC: F07M3ZZ Motor Function Treatment of Musculoskeletal System - Whole Body (ICD-10-PCS; principal; 2017-11-27)
DX: I69.359 Hemiplegia and hemiparesis following cerebral infarction affecting unspecified side (principal); I69.322 Dysarthria following cerebral infarction; I10 Essential (primary) hypertension; E11.319 Type 2 diabetes mellitus with unspecified diabetic retinopathy without macular edema; E11.21 Type 2 diabetes mellitus with diabetic nephropathy; Z79.4 Long term (current) use of insulin; E66.9 Obesity, unspecified; Z68.37 Body mass index [BMI] 37.0-37.9, adult; I45.81 Long QT syndrome; I95.1 Orthostatic hypotension; E78.5 Hyperlipidemia, unspecified; F17.200 Nicotine dependence, unspecified, uncomplicated
CPT/HCPCS: 92507-GN; 92523-GN; 97110-GO; 97110-GP; 97112-GO; 97112-GP; 97116-GP; 97162-GP; 97166-GO; 97530-GO; 97530-GP; 97535-GO; G0008; G0009; G0515-GO; J1650; J1815